=== PATIENT | female | born 1990 | race Caucasian/White ===

== ENCOUNTER 2017-01-09 13:02 | Outpatient (CLI) | payer BC ==
--- NOTE | 2017-01-09 17:52 | DIAGNOSTIC IMAGING REPORT ---
PROCEDURE: US OB 1ST TRIMESTER W/TRANSVAG INDICATION: VIABILITY TECHNIQUE: Robbins scale, color, and spectral Doppler transabdominal and endovaginal sonographic images of the first trimester gravid uterus were obtained. COMPARISON: None. FINDINGS: TRANSABDOMINAL SCANS: Single intrauterine gestational sac. Normal kidneys. TRANSVAGINAL SCANS: Gestational sac average diameter is 29 mm (8 weeks 2 days) with internal echoes and septations. There is a probable yolk sac but no definite pole visualized. There is a 1.8 x 1.7 x 2 cm paraovarian left cystic structure with an avascular of 6 mm mural nodule at the and no hyperemia . There is a left ovarian corpus luteum cyst. IMPRESSION: 1. Abnormal gestational sac (8 weeks 2 days) with septations and internal echoes but no pole. This suggests a blighted ovum. Early IUP is less likely. Recommend follow-up Beta hCG and ultrasound 2. 2 cm left para ovarian cystic structure with avascular mural nodule and no hyperemia. Ectopic is unlikely. 3. Results discussed with Dr. Tim
== END 2017-01-09 23:00 | disposition home or self-care (01) ==
LOC: US SRH 13:02
DX: Z34.91 Encounter for supervision of normal pregnancy, unspecified, first trimester (principal); Z3A.08 8 weeks gestation of pregnancy

== ENCOUNTER → 2017-01-12 | Outpatient (CLI) | payer BC | LOC: LAB SRH 11:56 | DX: N91.2 Amenorrhea, unspecified (principal) | CPT/HCPCS: 90074; 90197 ==